=== PATIENT | female | born 1960 | race Caucasian/White ===

== ENCOUNTER 2017-08-29 05:08 | Emergency (ER) | payer MEDICAID ==
[2017-08-29 06:30] LABS: BILIRUBIN,URINE NEGATIVE (NEG); CLARITY,URINE CLOUDY; COLOR,URINE YELLOW; GLUCOSE,URINE NEGATIVE (NEG); NITRITE,URINE NEGATIVE (NEG); PH,URINE 5.5; PROTEIN,URINE NEGATIVE (NEG-TRACE); UROBILINOGEN,URINE 0.2 mg/dL (0.2 mg/dL)
[2017-08-29 06:43] LABS: BACTERIA,URINE FEW /HPF (0-FEW); RBC,URINE 0 /HPF (0-2); SQUAMOUS EPITHELIAL CELL,UR MOD /LPF; WBC,URINE >40 /HPF (0-4)
== END 2017-08-29 06:58 | disposition home or self-care (01) ==
LOC: ER 05:08
DX: N39.0 Urinary tract infection, site not specified (principal); G89.29 Other chronic pain; J44.9 Chronic obstructive pulmonary disease, unspecified; I20.9 Angina pectoris, unspecified; I11.9 Hypertensive heart disease without heart failure; I25.2 Old myocardial infarction; M06.9 Rheumatoid arthritis, unspecified; F17.210 Nicotine dependence, cigarettes, uncomplicated; Z87.440 Personal history of urinary (tract) infections; Z90.49 Acquired absence of other specified parts of digestive tract; Z98.51 Tubal ligation status; Z88.5 Allergy status to narcotic agent; Z88.2 Allergy status to sulfonamides; Z88.8 Allergy status to other drugs, medicaments and biological substances; Z88.1 Allergy status to other antibiotic agents; Z91.041 Radiographic dye allergy status
CPT/HCPCS: 81001; 87086; 87186; 99284

== ENCOUNTER 2017-11-11 14:54 | Emergency (ER) | payer MEDICAID ==
[2017-11-11] MEDS: diphenhydrAMINE HCL 25 MG CAPSULE PO (15:45)
[2017-11-11] MEDS ORDERED: methylPREDNISolone SOD SUCC PF 125 MG/2 ML VIAL. IV (15:45)
[2017-11-11] MEDS: methylPREDNISolone SOD SUCC PF 125 MG/2 ML VIAL. IM (15:58)
[2017-11-11] MEDS ORDERED: methylPREDNISolone SOD SUCC PF 125 MG/2 ML VIAL. IM (22:00)
== END 2017-11-11 15:59 | disposition home or self-care (01) ==
LOC: ER 14:54
DX: L25.9 Unspecified contact dermatitis, unspecified cause (principal); J44.9 Chronic obstructive pulmonary disease, unspecified; I10 Essential (primary) hypertension; I25.2 Old myocardial infarction; M06.9 Rheumatoid arthritis, unspecified; Z90.49 Acquired absence of other specified parts of digestive tract
CPT/HCPCS: 96372; 99283; J2930; Q0163

== ENCOUNTER 2018-01-14 10:54 | Emergency (ER) | payer OTHER, MEDICAID ==
[2018-01-14 11:42] LABS: ADD MAN DIFF? NO
[2018-01-14 11:43] LABS: BASO # 0.1 x10^3/uL (0.0-0.2); BASO % 1 % (0-3); EOS # 0.1 x10^3/uL (0.0-0.7); EOS % 1 % (0-3); HEMATOCRIT 42.8 % (36.0-47.0); HEMOGLOBIN 14.8 g/dL (12.0-15.5); LYMPH # 3.2 x10^3/uL (1.0-4.8); LYMPH % 33 % (24-48); MEAN CORPUSCULAR HEMOGLOBIN 31 pg (25-35); MEAN CORPUSCULAR HGB CONC 35 g/dL (31-37); MEAN CORPUSCULAR VOLUME 91 fL (79-100); MONO # 0.5 x10^3/uL (0.0-1.1); MONO % 6 % (0-9); NEUT # 5.9 x10^3uL (1.8-7.7); NEUT % 61 % (31-73); PLATELET COUNT 267 x10^3/uL (140-400); RED BLOOD COUNT 4.73 x10^6/uL (3.50-5.40); RED CELL DISTRIBUTION WIDTH 12.7 % (11.5-14.5); WHITE BLOOD COUNT 9.8 x10^3/uL (4.0-11.0)
[2018-01-14] MEDS: KETOROLAC 15 MG/ML VIAL. IV (11:45)
[2018-01-14 11:55] LABS: ANION GAP 6 (6-14); BLOOD UREA NITROGEN 14 mg/dL (7-20); BUN/CREATININE RATIO 16 (6-20); CALCIUM 9.1 mg/dL (8.5-10.1); CARBON DIOXIDE 30 mmol/L (21-32); CHLORIDE 105 mmol/L (98-107); CREATININE 0.9 mg/dL (0.6-1.0); GFR 64.8; GLUCOSE 91 mg/dL (70-99); POTASSIUM 4.2 mmol/L (3.5-5.1); SODIUM 141 mmol/L (136-145)
[2018-01-14 12:00] LABS: ALBUMIN 3.5 g/dL (3.4-5.0); ALBUMIN/GLOBULIN RATIO 0.9 (1.0-1.7); ALK PHOS 83 U/L (46-116); ALT (SGPT) 19 U/L (14-59); AST (SGOT) 15 U/L (15-37); TOTAL BILIRUBIN 0.5 mg/dL (0.2-1.0); TOTAL PROTEIN 7.4 g/dL (6.4-8.2)
[2018-01-14 12:03] LABS: TROPONINI < 0.017 ng/mL (0.000-0.055)
[2018-01-14 12:05] LABS: BILIRUBIN,URINE SMALL (NEG); CLARITY,URINE CLEAR; COLOR,URINE AMBER; GLUCOSE,URINE NEGATIVE (NEG); NITRITE,URINE NEGATIVE (NEG); PH,URINE 5.5; PROTEIN,URINE NEGATIVE (NEG-TRACE); UROBILINOGEN,URINE 0.2 mg/dL (0.2 mg/dL)
[2018-01-14 12:06] LABS: NT-PRO BNP 205 pg/mL (0-124)
[2018-01-14 12:10] LABS: SQUAMOUS EPITHELIAL CELL,UR MANY /LPF
[2018-01-14 12:11] LABS: BACTERIA,URINE FEW /HPF (0-FEW)
== END 2018-01-14 13:28 | disposition home or self-care (01) ==
LOC: ER 10:54
DX: I10 Essential (primary) hypertension (principal); R06.02 Shortness of breath; M54.5 Low back pain; J44.9 Chronic obstructive pulmonary disease, unspecified; I11.9 Hypertensive heart disease without heart failure; I25.2 Old myocardial infarction; Z90.49 Acquired absence of other specified parts of digestive tract; Z98.51 Tubal ligation status; Z88.1 Allergy status to other antibiotic agents; Z88.2 Allergy status to sulfonamides; Z88.5 Allergy status to narcotic agent; Z88.8 Allergy status to other drugs, medicaments and biological substances; Z91.041 Radiographic dye allergy status
CPT/HCPCS: 36415; 71045; 80053; 81001; 83880; 84484; 85025; 93005; 96374; 99285-25; J1885

== ENCOUNTER 2018-02-04 16:07 | Emergency (ER) | payer SELFPAY ==
[~2018-02-04] VITALS: Ht 167.6 cm; Wt 106.6 kg
[~2018-02-04 16:07] MED LIST: CEPH-263 PO; HYDR-2766 PO; METO-247 PO; METO100T5 PO; NABU750T PO; NITR100C62 PO; PHEN-318 PO; QUIN20TA17 PO; TRIA15CR TP
[2018-02-04 17:16] VITALS: BP 125/83
[2018-02-04] MEDS ORDERED: POTA10TA12 PO (19:24)
[2018-02-04] MEDS ORDERED: FURO20TA3 PO (19:24)
== END 2018-02-04 17:52 | disposition left against medical advice (07) ==
LOC: ER 16:07
DX: M79.89 Other specified soft tissue disorders (principal); M79.604 Pain in right leg; M79.605 Pain in left leg; Z53.21 Procedure and treatment not carried out due to patient leaving prior to being seen by health care provider

== ENCOUNTER 2018-02-04 16:17 | Emergency (ER) | payer SELFPAY ==
[~2018-02-04] VITALS: Ht 167.6 cm; Wt 106.6 kg
[2018-02-04 18:10] VITALS: BP 157/74
--- NOTE | 2018-02-04 18:14 | PHYS DOC ---
Past Medical History Past Medical History: Angina, Asthma, CAD, COPD, Diverticulitis, Heart Disease , Hypertension, Kidney Infection, [place] Additional Past Medical Histor: RHEMATOID ARTHITIS, DEGENERATIVE BONE DISEASE, URINARY INCONT Past Surgical History: Appendectomy, Cholecystectomy, Tubal ligation Additional Past Surgical Histo: RIGHT KNEE SX Smoking: Cigarettes, 1 Pack Per Day Alcohol Use: None Drug Use: None Adult General Chief Complaint Chief Complaint: LOWER EXTREMITY SWELLING HPI HPI Patient is a 58-year-old female who presents to the emergency department for evaluation. She states that over the past 4 days, she noticed that her legs began swelling bilaterally. She denies any definite pain, although she does have some soreness with ambulation. She also admits to some orthopnea but has not had any other shortness of breath. She denies any significant cough, and has not had any chest pain, dizziness, lightheadedness, fevers, or chills. She denies any leg injuries. She has not had any recent travels or immobilization. There are no alleviating, or exacerbating factors to her symptoms. She does not take any diuretic medications. Review of Systems Review of Systems Constitutional: Denies fever or chills [] Eyes: Denies change in visual acuity, redness, or eye pain [] HENT: Denies nasal congestion or sore throat [] Respiratory: Denies cough or shortness of breath [] Cardiovascular: No additional information not addressed in HPI [] GI: Denies abdominal pain, nausea, vomiting, bloody stools or diarrhea [] : Denies dysuria or hematuria [] Musculoskeletal: Denies back pain or joint pain [] Integument: Denies rash or skin lesions [] Neurologic: Denies headache, focal weakness or sensory changes [] Endocrine: Denies polyuria or polydipsia [] All other systems were reviewed and found to be within normal limits, except as documented in this note. Allergies Allergies Allergies Coded Allergies Type Severity Reaction Last Updated Verified Sulfa (Sulfonamide Antibiotics) Allergy Severe 08/29/17 Yes Tetracyclines Allergy Severe 08/29/17 Yes codeine Allergy Severe 08/29/17 Yes erythromycin base Allergy Severe 08/29/17 Yes levofloxacin Allergy Severe 08/29/17 Yes meperidine Allergy Severe 10/03/17 Yes Iodinated Contrast- Oral and IV Dye Allergy Unknown 08/29/17 Yes albuterol Allergy Unknown 02/04/18 Yes ipratropium Allergy Unknown 02/04/18 Yes Physical Exam Physical Exam PHYSICAL EXAM: CONSTITUTIONAL: Well developed, well nourished HEAD: normocephalic, atraumatic EENT: PERRL, EOMI. Conjunctivae normal color, sclerae non-icteric; moist mucous membranes. NECK: Supple, non-tender; no meningismus. LUNGS: Lungs CTA, breathing even and unlabored. Normal air movement. HEART: Regular rate and rhythm, no murmur CHEST: No deformity; non-tender ABDOMEN: The abdomen is soft, and non-tender, no masses or bruits. EXTREM: Normal ROM; no deformity, no calf tenderness. Normal pulses palpable in all extremities. There is mild bilateral 1+ pitting pedal edema. SKIN: No rash; no diaphoresis NEURO: Alert; normal speech and cognition; CN's grossly intact; strength grossly intact without focal deficit. BACK: No CVA TTP. Current Patient Data Vital Signs Vital Signs Date Time Temp Pulse Resp B/P (MAP) Pulse Ox O2 Delivery O2 Flow Rate FiO2 02/04/18 18:10 98.1 68 20 157/74 (101) 99 Room Air 98.1 Lab Values Laboratory Tests Test 02/04/18 18:20 White Blood Count 11.1 x10^3/uL (4.0-11.0) H Red Blood Count 4.42 x10^6/uL (3.50-5.40) Hemoglobin 13.6 g/dL (12.0-15.5) Hematocrit 40.6 % (36.0-47.0) Mean Corpuscular Volume 92 fL (79-100) Mean Corpuscular Hemoglobin 31 pg (25-35) Mean Corpuscular Hemoglobin Concent 34 g/dL (31-37) Red Cell Distribution Width 13.1 % (11.5-14.5) Platelet Count 249 x10^3/uL (140-400) Neutrophils (%) (Auto) 62 % (31-73) Lymphocytes (%) (Auto) 31 % (24-48) Monocytes (%) (Auto) 6 % (0-9) Eosinophils (%) (Auto) 1 % (0-3) Basophils (%) (Auto) 1 % (0-3) Neutrophils # (Auto) 6.8 x10^3uL (1.8-7.7) Lymphocytes # (Auto) 3.4 x10^3/uL (1.0-4.8) Monocytes # (Auto) 0.6 x10^3/uL (0.0-1.1) Eosinophils # (Auto) 0.2 x10^3/uL (0.0-0.7) Basophils # (Auto) 0.1 x10^3/uL (0.0-0.2) Sodium Level 139 mmol/L (136-145) Potassium Level 4.0 mmol/L (3.5-5.1) Chloride Level 104 mmol/L (98-107) Carbon Dioxide Level 30 mmol/L (21-32) Anion Gap 5 (6-14) L Blood Urea Nitrogen 12 mg/dL (7-20) Creatinine 0.9 mg/dL (0.6-1.0) Estimated GFR (Cockcroft-Gault) 64.5 BUN/Creatinine Ratio 13 (6-20) Glucose Level 85 mg/dL (70-99) Calcium Level 8.8 mg/dL (8.5-10.1) Magnesium Level 2.1 mg/dL (1.8-2.4) Total Bilirubin 0.2 mg/dL (0.2-1.0) Aspartate Amino Transferase (AST) 16 U/L (15-37) Alanine Aminotransferase (ALT) 21 U/L (14-59) Alkaline Phosphatase 93 U/L (46-116) Creatine Kinase 88 U/L (26-192) Creatine Kinase MB (Mass) 1.1 ng/mL (0.0-3.6) Creatine Kinase MB Relative Index 1.3 % (0-4) Troponin I Quantitative < 0.017 ng/mL (0.000-0.055) OJ-Vtu-D-Type Natriuretic Peptide 684 pg/mL (0-124) H Total Protein 7.1 g/dL (6.4-8.2) Albumin 3.4 g/dL (3.4-5.0) Albumin/Globulin Ratio 0.9 (1.0-1.7) L Laboratory Tests 02/04/18 18:20 Laboratory Tests 02/04/18 18:20 EKG EKG []Normal sinus rhythm at a rate of 59 beats for minute, normal axis, normal intervals, nonspecific ST/T changes. Radiology/Procedures Radiology/Procedures [ER physician preliminary chest x-ray interpretation: No acute disease.] Course & Med Decision Making Course & Med Decision Making Pertinent Labs and Imaging studies reviewed. (See chart for details) [7:20 PM:Patient remains stable. I discussed test results, the need for close outpatient cardiology follow-up, and return precautions.] Dragon Disclaimer Dragon Disclaimer This electronic medical record was generated, in whole or in part, using a voice recognition dictation system. Departure Departure Impression: Primary Impression: Pedal edema Disposition: 01 HOME, SELF-CARE Condition: STABLE Referrals: ALBERT LEROY MD Patient Instructions: Edema, Heart Failure, Peripheral Edema Scripts Potassium Chloride (POTASSIUM CHLORIDE) 10 Meq Tab.sr.24h 10 MEQ PO DAILY for 30 Days, #30 TAB.SR Prov: ARAMIS PAGAN MD 02/04/18 Furosemide (FUROSEMIDE) 20 Mg Tablet 1 TAB PO DAILY, #30 TAB 1 Refill Prov: ARAMIS PAGAN MD 02/04/18 ARAMIS PAGAN MD Feb 04, 2018 18:14
--- NOTE | 2018-02-04 18:18 | EKG ---
[facility] [address] [place] [address] Test Date: 2018-02-04 Test Time: 18:10:15 Pat Name: RADHA ALEJO Department: Room: Gender: F [employer]: : 1960 Requested By: ARAMIS PAGAN Order Number: [id number] Reading MD: Jorge Luis Maguire MD Measurements Intervals [place] Rate: 59 P: NM: QRS: 17 QRSD: 78 T: 41 QT: 394 QTc: 394 Interpretive Statements SR NON-SPECIFIC ST/T CHANGES Electronically Signed On 02-05-2018 15:28:56 CDT by Jorge Luis Maguire MD
[2018-02-04 18:34] LABS: BASO # 0.1 x10^3/uL (0.0-0.2); BASO % 1 % (0-3); EOS # 0.2 x10^3/uL (0.0-0.7); EOS % 1 % (0-3); HEMATOCRIT 40.6 % (36.0-47.0); HEMOGLOBIN 13.6 g/dL (12.0-15.5); LYMPH # 3.4 x10^3/uL (1.0-4.8); LYMPH % 31 % (24-48); MEAN CORPUSCULAR HEMOGLOBIN 31 pg (25-35); MEAN CORPUSCULAR HGB CONC 34 g/dL (31-37); MEAN CORPUSCULAR VOLUME 92 fL (79-100); MONO # 0.6 x10^3/uL (0.0-1.1); MONO % 6 % (0-9); NEUT # 6.8 x10^3uL (1.8-7.7); NEUT % 62 % (31-73); PLATELET COUNT 249 x10^3/uL (140-400); RED BLOOD COUNT 4.42 x10^6/uL (3.50-5.40); RED CELL DISTRIBUTION WIDTH 13.1 % (11.5-14.5); WHITE BLOOD COUNT 11.1 x10^3/uL (4.0-11.0)
[2018-02-04 18:46] LABS: CALCIUM 8.8 mg/dL (8.5-10.1); CREATININE 0.9 mg/dL (0.6-1.0); GFR 64.5
[2018-02-04 18:50] LABS: ALBUMIN 3.4 g/dL (3.4-5.0); ALBUMIN/GLOBULIN RATIO 0.9 (1.0-1.7); MAGNESIUM 2.1 mg/dL (1.8-2.4); TOTAL BILIRUBIN 0.2 mg/dL (0.2-1.0); TOTAL PROTEIN 7.1 g/dL (6.4-8.2)
[2018-02-04] MEDS ORDERED: POTA10TA12 PO (19:24)
[2018-02-04] MEDS ORDERED: FURO20TA3 PO (19:24)
--- NOTE | 2018-02-05 08:11 | RAD ---
EXAM: PA and lateral views of the chest DATE: 02/04/2018 6:10 PM INDICATION: PEDAL EDEMA. PT STATES TAKING OXYBUTYNIN DAILY. HX OF SMOKING, COPD COMPARISON: No Prior FINDINGS: The heart is not enlarged. Mediastinal and hilar contours are normal. No focal parenchymal airspace opacity. No pleural effusion or pneumothorax. IMPRESSION: 1. No radiographic evidence for acute cardiopulmonary process. Electronically signed by: Ruslan Rios MD (02/05/2018 8:07 AM) [facility]
== END 2018-02-04 19:36 | disposition home or self-care (01) ==
LOC: ER 16:17
DX: R60.0 Localized edema (principal); I11.9 Hypertensive heart disease without heart failure; I25.10 Atherosclerotic heart disease of native coronary artery without angina pectoris; J44.9 Chronic obstructive pulmonary disease, unspecified; F17.210 Nicotine dependence, cigarettes, uncomplicated; Z90.49 Acquired absence of other specified parts of digestive tract; Z90.89 Acquired absence of other organs; Z98.51 Tubal ligation status; Z88.8 Allergy status to other drugs, medicaments and biological substances; Z88.1 Allergy status to other antibiotic agents; Z88.2 Allergy status to sulfonamides; Z88.5 Allergy status to narcotic agent; Z91.041 Radiographic dye allergy status
CPT/HCPCS: 36415; 71046; 80053; 82553; 83735; 83880; 84484; 85025; 93005; 99285-25

== ENCOUNTER 2018-04-19 10:54 | Inpatient (IN) | payer OTHER ==
[~2018-04-19] VITALS: Ht 175.3 cm; Wt 110.7 kg
[~2018-04-19 10:54] MED LIST changes: +FURO20TA3 PO; +POTA10TA12 PO
[2018-04-19] MEDS ORDERED: ALBUTEROL SULFATE 2.5 MG/3 ML NEBU. CONT NEB ONE ×2 (11:15→13:15)
[2018-04-19] MEDS ORDERED: IPRATRPIUM/ALBUTEROL 0.5/2.5MG 3 ML NEBU. NEB ONE (11:15)
--- NOTE | 2018-04-19 11:18 | PHYS DOC ---
Past Medical History Past Medical History: Angina, Asthma, CAD, COPD, Diverticulitis, Heart Disease , Hypertension, Kidney Infection, [place] Additional Past Medical Histor: RHEMATOID ARTHITIS, DEGENERATIVE BONE DISEASE, URINARY INCONT Past Surgical History: Appendectomy, Cholecystectomy, Tubal ligation Additional Past Surgical Histo: RIGHT KNEE SX Alcohol Use: None Drug Use: None Adult General Chief Complaint Chief Complaint: COUGH HPI HPI Patient is a 58 year old female who presents with dyspnea. Patient has a known history of COPD. She has been having worsening symptoms over the last 4 days. She complains of general malaise and myalgias. She has a cough that is nonproductive. She has medications at home but states she has been too sick to use them. Denies fever. No nausea or vomiting. No abdominal pain. Review of Systems Review of Systems Constitutional: + chills Eyes: Denies change in visual acuity HENT: Denies nasal congestion Respiratory: as documented above Cardiovascular: No additional information not addressed in HPI Musculoskeletal: Denies back pain Integument: Denies rash or skin lesions Neurologic: Denies headache All other systems were reviewed and found to be within normal limits, except as documented in this note. Current Medications Current Medications Current Medications Medications (Trade) Dose Ordered Sig/Lyric Start Time Stop Time Status Last Admin Dose Admin Albuterol Sulfate (Ventolin Neb Soln) 10 mg 1X ONCE 04/19/18 11:15 04/19/18 11:19 DC 04/19/18 11:38 10 MG Albuterol/ Ipratropium (Duoneb) 3 ml 1X ONCE 04/19/18 11:15 04/19/18 11:19 DC 04/19/18 11:30 3 ML Cefpodoxime Proxetil (Vantin) 400 mg 1X ONCE 04/19/18 13:00 04/19/18 13:23 DC Furosemide (Lasix) 40 mg 1X ONCE 04/19/18 12:45 04/19/18 13:23 DC Prednisone (Prednisone) 50 mg 1X ONCE 04/19/18 12:45 04/19/18 13:23 DC Allergies Allergies Allergies Coded Allergies Type Severity Reaction Last Updated Verified Sulfa (Sulfonamide Antibiotics) Allergy Severe 08/29/17 Yes Tetracyclines Allergy Severe 08/29/17 Yes codeine Allergy Severe 08/29/17 Yes erythromycin base Allergy Severe 08/29/17 Yes levofloxacin Allergy Severe 08/29/17 Yes meperidine Allergy Severe 10/03/17 Yes Iodinated Contrast- Oral and IV Dye Allergy Unknown 08/29/17 Yes albuterol Allergy Unknown PATIENT STATES SHE IS ALLERGIC TO EXCIPIENT/OIL IN COMBIVENT 04/19/18 Yes ipratropium Allergy Unknown PATIENT STATES SHE IS ALLERGIC TO EXCIPIENT/OIL IN COMBIVENT 04/19/18 Yes Physical Exam Physical Exam Constitutional: Well developed, well nourished, pale, ill-appearing HENT: Normocephalic, atraumatic, bilateral external ears normal, oropharynx moist Eyes: PERRLA, EOMI, conjunctiva normal Neck: Normal range of motion Cardiovascular:Heart rate regular rhythm, no murmur Lungs & Thorax: Diminished air movement bilaterally with prolonged expiratory phase, wheezes heard bilaterally, moderate increased work of breathing. Abdomen: Bowel sounds normal, soft, no tenderness Skin: Warm, pale, diaphoretic Extremities: No edema Neurologic: Alert and oriented X 3 Psychologic: Affect normal Current Patient Data Vital Signs Vital Signs Date Time Temp Pulse Resp B/P (MAP) Pulse Ox O2 Delivery O2 Flow Rate FiO2 04/19/18 13:00 100 30 142/84 (103) 87 04/19/18 12:02 Room Air 04/19/18 11:00 97.6 97.6 Lab Values Laboratory Tests Test 04/19/18 11:05 White Blood Count 6.8 x10^3/uL (4.0-11.0) Red Blood Count 4.88 x10^6/uL (3.50-5.40) Hemoglobin 15.1 g/dL (12.0-15.5) Hematocrit 43.5 % (36.0-47.0) Mean Corpuscular Volume 89 fL (79-100) Mean Corpuscular Hemoglobin 31 pg (25-35) Mean Corpuscular Hemoglobin Concent 35 g/dL (31-37) Red Cell Distribution Width 12.6 % (11.5-14.5) Platelet Count 255 x10^3/uL (140-400) Neutrophils (%) (Auto) 62 % (31-73) Lymphocytes (%) (Auto) 31 % (24-48) Monocytes (%) (Auto) 6 % (0-9) Eosinophils (%) (Auto) 1 % (0-3) Basophils (%) (Auto) 1 % (0-3) Neutrophils # (Auto) 4.2 x10^3uL (1.8-7.7) Lymphocytes # (Auto) 2.1 x10^3/uL (1.0-4.8) Monocytes # (Auto) 0.4 x10^3/uL (0.0-1.1) Eosinophils # (Auto) 0.1 x10^3/uL (0.0-0.7) Basophils # (Auto) 0.0 x10^3/uL (0.0-0.2) D-Dimer (Estela) 0.50 ug/mlFEU (0.00-0.50) Sodium Level 142 mmol/L (136-145) Potassium Level 4.0 mmol/L (3.5-5.1) Chloride Level 106 mmol/L (98-107) Carbon Dioxide Level 24 mmol/L (21-32) Anion Gap 12 (6-14) Blood Urea Nitrogen 7 mg/dL (7-20) Creatinine 0.7 mg/dL (0.6-1.0) Estimated GFR (Cockcroft-Gault) 86.2 Glucose Level 94 mg/dL (70-99) Lactic Acid Level 0.8 mmol/L (0.4-2.0) Calcium Level 9.0 mg/dL (8.5-10.1) Troponin I Quantitative < 0.017 ng/mL (0.000-0.055) [id number]-Type Natriuretic Peptide 1356 pg/mL (0-124) H Laboratory Tests 04/19/18 11:05 Laboratory Tests 04/19/18 11:05 EKG EKG No STEMI Interpretation Time: 11:35: No STEMI Radiology/Procedures Radiology/Procedures CXR: Negative CT Scan Chest: Findings: Axial images of chest were obtained without contrast. Sagittal and coronal reformatted images were provided. The tracheobronchial tree is normal. Patchy infiltrates are present involving the posterior left mid thoracic level. A left paraspinal region, there is a 0.7 cm diameter nodular ill-defined infiltrate. At the same level more posteriorly, there is a larger infiltrate which may have a somewhat solid component. This measures up to 1.5 cm diameter with the dense component measuring 0.9 cm diameter. No enlarged thoracic lymph nodes. Bony structures are unremarkable for the patient's age. Right upper quadrant surgical clip is present. Thoracic aortic morphology is grossly unremarkable. Impression: Infiltrates at the posterior left mid thoracic level within the lower lobe. Interval follow-up to resolution is recommended. Course & Med Decision Making Course & Med Decision Making Pertinent Labs and Imaging studies reviewed. (See chart for details) Patient is seen and examined. Ill-appearing with some increased work of breathing. Solumedrol and breathing treatments ordered. IVF's. Currently afebrile. Patient was evaluated in the emergency department for dyspnea. She did have some wheezes initially on arrival although she had no new oxygen requirement. The patient was pale and ill appearing and diaphoretic initially. She was given an hour-long DuoNeb treatment. Basic labs were checked her white blood cell count was not elevated. Her chest x-ray did not reveal any acute findings. She was given Solu-Medrol IV. The patient has many drug allergies which makes treating COPD exacerbation somewhat challenging. Plan was initially to discharge the patient home. She was feeling subjectively better and looking better after her treatment. Upon reexamination however, the patient came dyspneic again Tyree treatment. She became diaphoretic and felt short of breath. During this time, her lung assessment again revealed recurrent wheezes. Her dyspnea and symptoms seemed out of proportion to her chest x-ray so CT scan was completed. The scan was revealing for infiltrates as documented above. The patient is being admitted to the hospitalist service. Note: CT scan of the chest did return after the patient had already been admitted to the hospitalist service. I did review the electronic medical record and it appears that antibiotics were placed per the hospitalist to treat this patient's likely pneumonia. Dragon Disclaimer Dragon Disclaimer This electronic medical record was generated, in whole or in part, using a voice recognition dictation system. Departure Departure Referrals: UNKNOWN PCP NAME (PCP) COURTNEY FLOYD DO Apr 19, 2018 11:18
[2018-04-19 11:48] LABS: BASO % 1 % (0-3); EOS # 0.1 x10^3/uL (0.0-0.7); EOS % 1 % (0-3); HEMATOCRIT 43.5 % (36.0-47.0); HEMOGLOBIN 15.1 g/dL (12.0-15.5); LYMPH # 2.1 x10^3/uL (1.0-4.8); LYMPH % 31 % (24-48); MEAN CORPUSCULAR HEMOGLOBIN 31 pg (25-35); MEAN CORPUSCULAR HGB CONC 35 g/dL (31-37); MEAN CORPUSCULAR VOLUME 89 fL (79-100); MONO # 0.4 x10^3/uL (0.0-1.1); MONO % 6 % (0-9); NEUT # 4.2 x10^3uL (1.8-7.7); NEUT % 62 % (31-73); PLATELET COUNT 255 x10^3/uL (140-400); RED BLOOD COUNT 4.88 x10^6/uL (3.50-5.40); RED CELL DISTRIBUTION WIDTH 12.6 % (11.5-14.5); WHITE BLOOD COUNT 6.8 x10^3/uL (4.0-11.0)
[2018-04-19 11:59] LABS: CREATININE 0.7 mg/dL (0.6-1.0); GFR 86.2
--- NOTE | 2018-04-19 12:31 | RAD ---
Examination: PORTABLE CHEST 1V History: COPD, dyspnea, fever, RUNNING NOSE, COUGH GOING ON 3 DAYS, HX OF HEART ATTACK, HX HYPERTENTION, HX HYPERLIPIDEMIA Comparison/Correlation: 02/04/2018 two-view chest x-ray exam Findings: Portable upright frontal view chest was obtained. Heart size and pulmonary vasculature are normal. No new infiltrate or effusion. Bony structures are unremarkable. No pneumothorax. Impression: No active disease. Electronically signed by: Aaron Burnette MD (04/19/2018 12:29 PM) [facility]
[2018-04-19] MEDS ORDERED: predniSONE 10 MG TABLET PO ONE (12:45)
[2018-04-19] MEDS ORDERED: FUROSEMIDE 40 MG TABLET. PO ONE (12:45)
[2018-04-19] MEDS ORDERED: CEFPODOXIME PROXETIL 100 MG TABLET. PO ONE (13:00)
[2018-04-19] MEDS ORDERED: ACETAMINOPHEN 325 MG TABLET. PO PRN (13:15)
[2018-04-19] MEDS ORDERED: ONDANSETRON PF 4 MG/2 ML VIAL. IV PRN ×2 (13:15→14:15)
[2018-04-19] MEDS ORDERED: methylPREDNISolone SOD SUCC PF 125 MG/2 ML VIAL. IV ONE (13:45)
--- NOTE | 2018-04-19 14:12 | RAD ---
Examination: CT CHEST WO CONTRAST History: dyspnea out of proportion to CXR Comparison/Correlation: 04/19/2018 portable chest x-ray exam Findings: Axial images of chest were obtained without contrast. Sagittal and coronal reformatted images were provided. The tracheobronchial tree is normal. Patchy infiltrates are present involving the posterior left mid thoracic level. A left paraspinal region, there is a 0.7 cm diameter nodular ill-defined infiltrate. At the same level more posteriorly, there is a larger infiltrate which may have a somewhat solid component. This measures up to 1.5 cm diameter with the dense component measuring 0.9 cm diameter. No enlarged thoracic lymph nodes. Bony structures are unremarkable for the patient's age. Right upper quadrant surgical clip is present. Thoracic aortic morphology is grossly unremarkable. Impression: Infiltrates at the posterior left mid thoracic level within the lower lobe. Interval follow-up to resolution is recommended. Electronically signed by: Aaron Burnette MD (04/19/2018 2:09 PM) [facility]
[2018-04-19] MEDS ORDERED: diphenhydrAMINE HCL 25 MG CAPSULE PO PRN (14:15)
[2018-04-19] MEDS ORDERED: guaiFENesin DM 200MG/20MG 10 ML SYRUP PO PRN (14:15)
[2018-04-19] MEDS ORDERED: NICOTINE 21MG PATCH. TD PRN (14:45)
[2018-04-19] MEDS ORDERED: PIP/TAZO PER PHARMACY MC PRN (14:45)
[2018-04-19] MEDS ORDERED: NICOTINE POLACRILEX 2MG GUM PACKAGE of 12. BC PRN ×2 (14:45→15:15)
--- NOTE | 2018-04-19 14:47 | PDOC1 ---
History and Physical Date of Admission Date of Admission DATE: 04/19/18 TIME: 14:40 Identification/Chief Complaint Chief Complaint S OA with sweats Source Source: Caregiver, Chart review, Patient History of Present Illness History of Present Illness 58-year-old female who smokes about a pack a day, BMI 39, comes in because of SOA. No fevers, no recent change in phlegm. She can hardly cough out any phlegm. Very SOA and wheezy on admission or at ER arrival. She was about to sent home but then sudden onset of dyspnea and sweating. Hence admitted with pulmonary consulted. Chest x-ray shows no acute infiltrate but CTA ordered and still pending. CArds also consulted bec of the diaphoresis and mildly elevated BNP 1300. NO hx CHF, she denies any CP currently,, She is breathing much better , symmetrical chest expansion, very minimal wheezing I could appreciate. She is considering to stop smoking. AddendUm: CT Impression: Infiltrates at the posterior left mid thoracic level within the lower lobe. Interval follow-up to resolution is recommended. Past Medical History Cardiovascular: HTN Pulmonary: Asthma, Bronchitis, COPD Past Surgical History Past Surgical History: No pertinent history Family History Family History: Hypertension Social History Smoke: 1 pack per day ALCOHOL: occassional Drugs: None Current Medications Current Medications Current Medications Albuterol/ Ipratropium (Duoneb) 3 ml 1X ONCE NEB Last administered on at 11:30; Start 04/19/18 at 11:15; Stop 04/19/18 at 11:19; Status DC Albuterol Sulfate (Ventolin Neb Soln) 10 mg 1X ONCE CONT NEB Last administered on 04/19/18at 11:38; Start 04/19/18 at 11:15; Stop 04/19/18 at 11 :19; Status DC Furosemide (Lasix) 40 mg 1X ONCE PO ; Start 04/19/18 at 12:45; Stop 04/19/18 at 13:23; Status DC Prednisone (Prednisone) 50 mg 1X ONCE PO ; Start 04/19/18 at 12:45; Stop at 13:23; Status DC Cefpodoxime Proxetil (Vantin) 400 mg 1X ONCE PO ; Start 04/19/18 at 13:00; Stop 04/19/18 at 13:23; Status DC Albuterol Sulfate (Ventolin Neb Soln) 10 mg 1X ONCE CONT NEB ; Start 04/19/18 at 13:15; Stop 04/19/18 at 13:22; Status DC Ondansetron HCl (Zofran) 4 mg PRN Q8HRS PRN IV NAUSEA/VOMITING; Start at 13:15; Stop 04/19/18 at 14:06; Status DC Fentanyl Citrate (Fentanyl 2ml Vial) 50 mcg PRN Q2HR PRN IV PAIN; Start at 13:15; Stop 04/20/18 at 13:14 Acetaminophen (Tylenol) 650 mg PRN Q4HRS PRN PO FEVER; Start 04/19/18 at 13:15 ; Stop 04/20/18 at 13:14 Albuterol/ Ipratropium (Duoneb) 3 ml RTQID NEB ; Start 04/19/18 at 16:00; Stop 04/20/18 at 15:59 Methylprednisolone Sodium Succinate (SOLU-Medrol 125MG VIAL) 125 mg 1X ONCE IV Last administered on 04/19/18at 13:41; Start 04/19/18 at 13:45; Stop at 13:46; Status DC Ondansetron HCl (Zofran) 4 mg PRN Q6HRS PRN IV NAUSEA/VOMITING; Start at 14:15 Benzonatate (Tessalon Perle) 100 mg [id number] PO ; Start 04/19/18 at 14:30 Diphenhydramine HCl (Benadryl) 25 mg PRN QHS PRN PO INSOMNIA; Start 04/19/18 at 14:15 Guaifenesin (Robitussin Dm) 10 ml PRN Q6HRS PRN PO COUGH; Start 04/19/18 at 14 :15 Furosemide (Lasix) 20 mg DAILY PO ; Start 04/19/18 at 15:00 Metoprolol Succinate (Toprol Xl) 100 mg BID PO ; Start 04/19/18 at 21:00 Potassium Chloride (Klor-Con) 10 meq DAILY PO ; Start 04/19/18 at 15:00 Acetaminophen/ Hydrocodone Bitart (Lortab 10/325) 1 tab BID PO ; Start at 21:00 Meloxicam (Mobic) 15 mg DAILY PO ; Start 04/20/18 at 09:00 Phenazopyridine HCl (Pyridium) 200 mg TID PO ; Start 04/19/18 at 14:30 Lisinopril (Prinivil) 20 mg DAILY PO ; Start 04/19/18 at 15:00 Triamcinolone Acetonide (Kenalog) 1 william BID TP ; Start 04/19/18 at 21:00 Active Scripts Active Potassium Chloride 10 Meq Tab.sr.24h 10 Meq PO DAILY 30 Days Furosemide 20 Mg Tablet 1 Tab PO DAILY Quinapril Hcl 20 Mg Tablet 20 Mg PO DAILY 30 Days Toprol Xl (Metoprolol Succinate) 100 Mg Tab.er.24h 1 Tab PO DAILY Triamcinolone Acetonide 0.5% Cream (Triamcinolone Acetonide) 15 Gm Cream..g. 1 William TP BID Keflex (Cephalexin) 250 Mg Capsule 1 Cap PO TID Pyridium (Phenazopyridine Hcl) 200 Mg Tablet 200 Mg PO TID 3 Days Macrobid 100 Mg Capsule (Nitrofurantoin Monohyd/M-Cryst) 100 Mg Capsule 1 Cap PO BID Reported Hydrocodone-Apap 10-325 (Hydrocodone Bit/Acetaminophen) 1 Each Tablet 1 Tab PO BID Metoprolol Succinate ( Xl ) (Metoprolol Succinate) 100 Mg Tab.er.24h 1 Tab PO BID Nabumetone 750 Mg Tablet 1,500 Mg PO DAILY Quinapril Hcl 20 Mg Tablet 1 Tab PO DAILY Allergies Allergies: Coded Allergies: Sulfa (Sulfonamide Antibiotics) (Verified Allergy, Severe, 08/29/17) Tetracyclines (Verified Allergy, Severe, 08/29/17) codeine (Verified Allergy, Severe, 08/29/17) erythromycin base (Verified Allergy, Severe, 08/29/17) levofloxacin (Verified Allergy, Severe, 08/29/17) meperidine (Verified Allergy, Severe, 10/03/17) Patient has taken Fentanyl OK. Iodinated Contrast- Oral and IV Dye (Verified Allergy, Unknown, 08/29/17) albuterol (Verified Allergy, Unknown, PATIENT STATES SHE IS ALLERGIC TO EXCIPIENT/OIL IN COMBIVENT, 04/19/18) Per Dr. English 04/19 she is not allergic to albuterol or ipratroium ipratropium (Verified Allergy, Unknown, PATIENT STATES SHE IS ALLERGIC TO EXCIPIENT/OIL IN COMBIVENT, 04/19/18) Per Dr. English 04/19 she is not allergic to albuterol or ipratroium ROS Review of System as per HPI, the rest of ROS 14 point negative Physical Exam General: Alert, Oriented X3, Cooperative, No acute distress HEENT: Atraumatic, PERRLA Lungs: Clear to auscultation, Normal air movement, Other (minimal wheezing bases) Heart: S1S2, RRR, no thrills, no gallops, no murmurs Cardiovascular: S1, S2 Breasts: Normal, Rt breast nml w/o mass, Lt breast nml w/o mass, Nipples normal Abdomen: Normal bowel sounds, Soft, No tenderness, No hepatosplenomegaly, No masses Rectal Exam: not examined PELVIC: Nml ext genitalia Extremities: No clubbing, No cyanosis, No edema, Normal pulses, No tenderness/ swelling Skin: No rashes, No breakdown, No significant lesion Neuro: Normal gait, Normal speech, Strength at 5/5 X4 ext, Normal tone, Sensation intact, Cranial nerves 3-12 NL, Reflexes 2+ Psych/Mental Status: Mental status NL, Mood NL Vitals Vitals Vital Signs Date Time Temp Pulse Resp B/P (MAP) Pulse Ox O2 Delivery O2 Flow Rate FiO2 04/19/18 13:35 98.2 90 24 142/81 (101) 97 Nasal Cannula 2.0 98.2 Labs Labs Laboratory Tests Test 04/19/18 11:05 White Blood Count 6.8 x10^3/uL (4.0-11.0) Red Blood Count 4.88 x10^6/uL (3.50-5.40) Hemoglobin 15.1 g/dL (12.0-15.5) Hematocrit 43.5 % (36.0-47.0) Mean Corpuscular Volume 89 fL (79-100) Mean Corpuscular Hemoglobin 31 pg (25-35) Mean Corpuscular Hemoglobin Concent 35 g/dL (31-37) Red Cell Distribution Width 12.6 % (11.5-14.5) Platelet Count 255 x10^3/uL (140-400) Neutrophils (%) (Auto) 62 % (31-73) Lymphocytes (%) (Auto) 31 % (24-48) Monocytes (%) (Auto) 6 % (0-9) Eosinophils (%) (Auto) 1 % (0-3) Basophils (%) (Auto) 1 % (0-3) Neutrophils # (Auto) 4.2 x10^3uL (1.8-7.7) Lymphocytes # (Auto) 2.1 x10^3/uL (1.0-4.8) Monocytes # (Auto) 0.4 x10^3/uL (0.0-1.1) Eosinophils # (Auto) 0.1 x10^3/uL (0.0-0.7) Basophils # (Auto) 0.0 x10^3/uL (0.0-0.2) D-Dimer (Estela) 0.50 ug/mlFEU (0.00-0.50) Sodium Level 142 mmol/L (136-145) Potassium Level 4.0 mmol/L (3.5-5.1) Chloride Level 106 mmol/L (98-107) Carbon Dioxide Level 24 mmol/L (21-32) Anion Gap 12 (6-14) Blood Urea Nitrogen 7 mg/dL (7-20) Creatinine 0.7 mg/dL (0.6-1.0) Estimated GFR (Cockcroft-Gault) 86.2 Glucose Level 94 mg/dL (70-99) Lactic Acid Level 0.8 mmol/L (0.4-2.0) Calcium Level 9.0 mg/dL (8.5-10.1) Troponin I Quantitative < 0.017 ng/mL (0.000-0.055) BL-Uhd-R-Type Natriuretic Peptide 1356 pg/mL (0-124) Laboratory Tests Test 04/19/18 11:05 White Blood Count 6.8 x10^3/uL (4.0-11.0) Red Blood Count 4.88 x10^6/uL (3.50-5.40) Hemoglobin 15.1 g/dL (12.0-15.5) Hematocrit 43.5 % (36.0-47.0) Mean Corpuscular Volume 89 fL (79-100) Mean Corpuscular Hemoglobin 31 pg (25-35) Mean Corpuscular Hemoglobin Concent 35 g/dL (31-37) Red Cell Distribution Width 12.6 % (11.5-14.5) Platelet Count 255 x10^3/uL (140-400) Neutrophils (%) (Auto) 62 % (31-73) Lymphocytes (%) (Auto) 31 % (24-48) Monocytes (%) (Auto) 6 % (0-9) Eosinophils (%) (Auto) 1 % (0-3) Basophils (%) (Auto) 1 % (0-3) Neutrophils # (Auto) 4.2 x10^3uL (1.8-7.7) Lymphocytes # (Auto) 2.1 x10^3/uL (1.0-4.8) Monocytes # (Auto) 0.4 x10^3/uL (0.0-1.1) Eosinophils # (Auto) 0.1 x10^3/uL (0.0-0.7) Basophils # (Auto) 0.0 x10^3/uL (0.0-0.2) D-Dimer (Estela) 0.50 ug/mlFEU (0.00-0.50) Sodium Level 142 mmol/L (136-145) Potassium Level 4.0 mmol/L (3.5-5.1) Chloride Level 106 mmol/L (98-107) Carbon Dioxide Level 24 mmol/L (21-32) Anion Gap 12 (6-14) Blood Urea Nitrogen 7 mg/dL (7-20) Creatinine 0.7 mg/dL (0.6-1.0) Estimated GFR (Cockcroft-Gault) 86.2 Glucose Level 94 mg/dL (70-99) Lactic Acid Level 0.8 mmol/L (0.4-2.0) Calcium Level 9.0 mg/dL (8.5-10.1) Troponin I Quantitative < 0.017 ng/mL (0.000-0.055) FZ-Sld-B-Type Natriuretic Peptide 1356 pg/mL (0-124) VTE Prophylaxis Ordered VTE Prophylaxis Devices: Yes VTE Pharmacological Prophylaxi: Yes Assessment/Plan Assessment/Plan CAP - CT shows infiltrates Smoker pack a day COPD flare Obesity HTN Diaphoresis POA - likely sec to lung issue SIRS POA, no sepsis or organ dysfcn Allergies to levaquin and emycin PLAN: CAP coverage PUlmo consult Allergies to levaquin and emycin HEnce zosyn per pharmacy Cough med, neb Pred 50 PO I have reconciled home emds Kalpana patch Counselled 1:1 against smoking She is eager to go home soon if she can seen at rm 578 dw RN at bedside SCOTT CHAPPELL MD Apr 19, 2018 14:47
--- NOTE | 2018-04-19 14:58 | EKG ---
[facility] [address] [place] [address] Test Date: 2018-04-19 Test Time: 11:30:03 Pat Name: RADHA ALEJO Department: Room: 578 1 Gender: F [employer]: : [id number] Requested By: COURTNEY FLOYD Order Number: [id number] Reading MD: Jorge Luis Maguire MD Measurements Intervals [place] Rate: 65 P: 142 LA: 150 QRS: 170 QRSD: 78 T: 129 QT: 414 QTc: 435 Interpretive Statements SINUS RHYTHM LIMB LEAD REVERSAL Electronically Signed On 04-20-2018 11:46:05 CDT by Jorge Luis Maguire MD
[2018-04-19 15:00] VITALS: BP 134/90
[2018-04-19] MEDS: PIPERACILLIN/TAZOBACTAM 3.375 GM in IV NORMAL SALINE 50ML 50 ML IV SCH ×2 (15:00→19:58)
[2018-04-19] MEDS: fentaNYL PF VIAL 100 MCG/2 ML VIAL IV PRN ×2 (15:04→19:57)
[2018-04-19] MEDS: IPRATRPIUM/ALBUTEROL 0.5/2.5MG 3 ML NEBU. NEB SCH ×2 (15:10→19:28)
[2018-04-19] MEDS ORDERED: ALPRAZolam 0.5 MG TABLET PO ONE (15:15)
[2018-04-19] MEDS: BENZONATATE 100 MG CAPSULE. PO SCH ×2 (18:16→21:18)
[2018-04-19] MEDS: LISINOPRIL 20 MG TABLET PO SCH (18:16)
[2018-04-19] MEDS: POTASSIUM CHLORIDE 10 MEQ TABLET.ER. PO SCH (18:17)
[2018-04-19] MEDS: PHENAZOPYRIDINE 200 MG TABLET. PO SCH ×2 (18:17→21:18)
[2018-04-19] MEDS: FUROSEMIDE 20 MG TABLET PO SCH (18:17)
[2018-04-19] MEDS: predniSONE 20 MG TABLET PO SCH (18:17)
[2018-04-19 19:00] VITALS: BP 139/68
[2018-04-19] MEDS ORDERED: TRIAMCINOLONE ACETONIDE 0.1% TOPICAL CREAM 15GM TUBE. TP SCH (21:00)
[2018-04-19] MEDS: METOPROLOL SUCC 24HR ER 100 MG TAB.ER.24H. PO SCH (21:18)
[2018-04-19] MEDS: LACTOBACILLUS RHAMNOSUS GG 1 CAPSULE. PO SCH (21:18)
[2018-04-19] MEDS: HYDROcodone/APAP 10/325 1 TAB TABLET PO SCH (21:22)
[2018-04-19 23:00] VITALS: BP 110/56
[2018-04-20] MEDS: PIPERACILLIN/TAZOBACTAM 3.375 GM in IV NORMAL SALINE 50ML 50 ML IV SCH ×2 (00:12→05:48)
[2018-04-20] MEDS ORDERED: ALPR1TAB6 PO (00:27)
[2018-04-20] MEDS ORDERED: ASPI-630 PO (00:27)
[2018-04-20] MEDS ORDERED: TRAM50TA PO (00:27)
[2018-04-20] MEDS ORDERED: GABA600T2 PO (00:27)
[2018-04-20] MEDS: ALPRAZolam 0.5 MG TABLET PO PRN ×2 (00:35→09:21)
[2018-04-20 01:13] LABS: INFLUENZA A PATIENT NEGATIVE (NEGATIVE); INFLUENZA B PATIENT NEGATIVE (NEGATIVE)
[2018-04-20 03:00] VITALS: BP 138/72
[2018-04-20 04:34] LABS: BASO % 0 % (0-3); EOS % 0 % (0-3); HEMATOCRIT 41.2 % (36.0-47.0); HEMOGLOBIN 14.4 g/dL (12.0-15.5); LYMPH # 1.1 x10^3/uL (1.0-4.8); LYMPH % 13 % (24-48); MEAN CORPUSCULAR HEMOGLOBIN 31 pg (25-35); MEAN CORPUSCULAR HGB CONC 35 g/dL (31-37); MEAN CORPUSCULAR VOLUME 90 fL (79-100); MONO # 0.2 x10^3/uL (0.0-1.1); MONO % 3 % (0-9); NEUT # 7.4 x10^3uL (1.8-7.7); NEUT % 84 % (31-73); PLATELET COUNT 270 x10^3/uL (140-400); RED BLOOD COUNT 4.59 x10^6/uL (3.50-5.40); RED CELL DISTRIBUTION WIDTH 12.9 % (11.5-14.5); WHITE BLOOD COUNT 8.7 x10^3/uL (4.0-11.0)
[2018-04-20 05:04] LABS: CALCIUM 8.8 mg/dL (8.5-10.1); CREATININE 0.8 mg/dL (0.6-1.0); GFR 73.9; POTASSIUM 3.9 mmol/L (3.5-5.1)
[2018-04-20] MEDS ORDERED: traMADol 50 MG TABLET PO PRN (06:00)
[2018-04-20 07:00] VITALS: BP 156/82
[2018-04-20] MEDS: IPRATRPIUM/ALBUTEROL 0.5/2.5MG 3 ML NEBU. NEB SCH (08:15)
[2018-04-20] MEDS ORDERED: MELOXICAM 7.5 MG TABLET PO SCH (09:00)
[2018-04-20] MEDS ORDERED: GABAPENTIN 300 MG CAPSULE. PO SCH (09:00)
[2018-04-20] MEDS ORDERED: ASPIRIN CHEWABLE 81 MG TABLET. PO SCH (09:00)
[2018-04-20] MEDS: HYDROcodone/APAP 10/325 1 TAB TABLET PO SCH (09:18)
[2018-04-20] MEDS: FUROSEMIDE 20 MG TABLET PO SCH (09:18)
[2018-04-20] MEDS: METOPROLOL SUCC 24HR ER 100 MG TAB.ER.24H. PO SCH (09:19)
[2018-04-20] MEDS: predniSONE 20 MG TABLET PO SCH (09:19)
[2018-04-20] MEDS: LACTOBACILLUS RHAMNOSUS GG 1 CAPSULE. PO SCH (09:19)
[2018-04-20] MEDS: POTASSIUM CHLORIDE 10 MEQ TABLET.ER. PO SCH (09:19)
[2018-04-20] MEDS: BENZONATATE 100 MG CAPSULE. PO SCH (09:20)
[2018-04-20] MEDS: LISINOPRIL 20 MG TABLET PO SCH (09:21)
[2018-04-20] MEDS ORDERED: VANCOMYCIN 1 GM in IV NORMAL SALINE 250ML 250 ML IV SCH (10:15)
[2018-04-20] MEDS ORDERED: VANCOMYCIN PER PHARMACY MC PRN (10:15)
--- NOTE | 2018-04-20 10:28 | PDOC2 ---
CARDIAC CONSULT PAST MEDICAL HISTORY Pulmonary: Pneumonia CURRENT MEDICATIONS CURRENT MEDICATIONS Current Medications Medications (Trade) Dose Ordered Sig/Lyric Route PRN Reason Start Time Stop Time Status Last Admin Dose Admin Albuterol/ Ipratropium (Duoneb) 3 ml 1X ONCE NEB 04/19/18 11:15 04/19/18 11:19 DC 04/19/18 11:30 Albuterol Sulfate (Ventolin Neb Soln) 10 mg 1X ONCE CONT NEB 04/19/18 11:15 04/19/18 11:19 DC 04/19/18 11:38 Fentanyl Citrate (Fentanyl 2ml Vial) 50 mcg PRN Q2HR PRN IV PAIN 04/19/18 13:15 04/20/18 13:14 04/19/18 19:57 Acetaminophen (Tylenol) 650 mg PRN Q4HRS PRN PO FEVER 04/19/18 13:15 04/20/18 13:14 04/20/18 03:51 Albuterol/ Ipratropium (Duoneb) 3 ml RTQID NEB 04/19/18 16:00 04/20/18 15:59 04/20/18 08:15 Methylprednisolone Sodium Succinate (SOLU-Medrol 125MG VIAL) 125 mg 1X ONCE IV 04/19/18 13:45 04/19/18 13:46 DC 04/19/18 13:41 Benzonatate (Tessalon Perle) 100 mg [id number] PO 04/19/18 14:30 04/20/18 09:20 Furosemide (Lasix) 20 mg DAILY PO 04/19/18 15:00 04/20/18 09:18 Metoprolol Succinate (Toprol Xl) 100 mg BID PO 04/19/18 21:00 04/20/18 09:19 Potassium Chloride (Klor-Con) 10 meq DAILY PO 04/19/18 15:00 04/20/18 09:19 Acetaminophen/ Hydrocodone Bitart (Lortab 10/325) 1 tab BID PO 04/19/18 21:00 04/20/18 09:18 Meloxicam (Mobic) 15 mg DAILY PO 04/20/18 09:00 04/20/18 09:20 Phenazopyridine HCl (Pyridium) 200 mg TID PO 04/19/18 14:30 04/20/18 00:31 DC 04/19/18 21:18 Lisinopril (Prinivil) 20 mg DAILY PO 04/19/18 15:00 04/20/18 09:21 Prednisone (Prednisone) 50 mg DAILY PO 04/19/18 15:30 04/20/18 09:19 Piperacillin Sod/ Tazobactam Sod 3.375 gm/Sodium Chloride 50 ml @ 100 mls/hr Q6HRS IV 04/19/18 15:00 04/20/18 05:48 Alprazolam (Xanax) 0.5 mg PRN Q8HRS PRN PO ANXIETY / AGITATION 04/19/18 22:00 04/20/18 09:21 Alprazolam (Xanax) 0.5 mg 1X ONCE PO 04/19/18 15:15 04/19/18 15:16 DC 04/19/18 15:16 Lactobacillus Rhamnosus (Culturelle) 1 cap BID PO 04/19/18 21:00 04/20/18 09:19 Aspirin (Children'S Aspirin) 81 mg DAILY PO 04/20/18 09:00 04/20/18 09:20 Gabapentin (Neurontin) 600 mg BID PO 04/20/18 09:00 04/20/18 09:18 Tramadol HCl (Ultram) 50 mg PRN Q6HRS PRN PO MODERATE PAIN 04/20/18 06:00 04/20/18 05:55 ALLERGIES ALLERGIES: Coded Allergies: Sulfa (Sulfonamide Antibiotics) (Verified Allergy, Severe, 08/29/17) Tetracyclines (Verified Allergy, Severe, 08/29/17) codeine (Verified Allergy, Severe, 08/29/17) erythromycin base (Verified Allergy, Severe, 08/29/17) levofloxacin (Verified Allergy, Severe, 08/29/17) meperidine (Verified Allergy, Severe, 10/03/17) Patient has taken Fentanyl OK. Iodinated Contrast- Oral and IV Dye (Verified Allergy, Unknown, 08/29/17) albuterol (Verified Allergy, Unknown, PATIENT STATES SHE IS ALLERGIC TO EXCIPIENT/OIL IN COMBIVENT, 04/19/18) Per Dr. English 04/19 she is not allergic to albuterol or ipratroium ipratropium (Verified Allergy, Unknown, PATIENT STATES SHE IS ALLERGIC TO EXCIPIENT/OIL IN COMBIVENT, 04/19/18) Per Dr. English 04/19 she is not allergic to albuterol or ipratroium VITALS VITALS Vital Signs Date Time Temp Pulse Resp B/P (MAP) Pulse Ox O2 Delivery O2 Flow Rate FiO2 04/20/18 09:21 64 156/82 04/20/18 08:16 97 Room Air 04/20/18 07:00 97.9 20 97.9 04/20/18 03:00 2.0 LABS Lab: Laboratory Tests Test 04/19/18 11:05 04/19/18 16:20 04/19/18 18:52 04/19/18 23:45 White Blood Count 6.8 x10^3/uL (4.0-11.0) Red Blood Count 4.88 x10^6/uL (3.50-5.40) Hemoglobin 15.1 g/dL (12.0-15.5) Hematocrit 43.5 % (36.0-47.0) Mean Corpuscular Volume 89 fL (79-100) Mean Corpuscular Hemoglobin 31 pg (25-35) Mean Corpuscular Hemoglobin Concent 35 g/dL (31-37) Red Cell Distribution Width 12.6 % (11.5-14.5) Platelet Count 255 x10^3/uL (140-400) Neutrophils (%) (Auto) 62 % (31-73) Lymphocytes (%) (Auto) 31 % (24-48) Monocytes (%) (Auto) 6 % (0-9) Eosinophils (%) (Auto) 1 % (0-3) Basophils (%) (Auto) 1 % (0-3) Neutrophils # (Auto) 4.2 x10^3uL (1.8-7.7) Lymphocytes # (Auto) 2.1 x10^3/uL (1.0-4.8) Monocytes # (Auto) 0.4 x10^3/uL (0.0-1.1) Eosinophils # (Auto) 0.1 x10^3/uL (0.0-0.7) Basophils # (Auto) 0.0 x10^3/uL (0.0-0.2) D-Dimer (Estela) 0.50 ug/mlFEU (0.00-0.50) Sodium Level 142 mmol/L (136-145) Potassium Level 4.0 mmol/L (3.5-5.1) Chloride Level 106 mmol/L (98-107) Carbon Dioxide Level 24 mmol/L (21-32) Anion Gap 12 (6-14) Blood Urea Nitrogen 7 mg/dL (7-20) Creatinine 0.7 mg/dL (0.6-1.0) Estimated GFR (Cockcroft-Gault) 86.2 Glucose Level 94 mg/dL (70-99) Lactic Acid Level 0.8 mmol/L (0.4-2.0) Calcium Level 9.0 mg/dL (8.5-10.1) Troponin I Quantitative < 0.017 ng/mL (0.000-0.055) < 0.017 ng/mL (0.000-0.055) < 0.017 ng/mL (0.000-0.055) RY-Byt-W-Type Natriuretic Peptide 1356 pg/mL (0-124) Influenza Type A Antigen Negative (NEGATIVE) Influenza Type B Antigen Negative (NEGATIVE) Test 04/20/18 04:05 White Blood Count 8.7 x10^3/uL (4.0-11.0) Red Blood Count 4.59 x10^6/uL (3.50-5.40) Hemoglobin 14.4 g/dL (12.0-15.5) Hematocrit 41.2 % (36.0-47.0) Mean Corpuscular Volume 90 fL (79-100) Mean Corpuscular Hemoglobin 31 pg (25-35) Mean Corpuscular Hemoglobin Concent 35 g/dL (31-37) Red Cell Distribution Width 12.9 % (11.5-14.5) Platelet Count 270 x10^3/uL (140-400) Neutrophils (%) (Auto) 84 % (31-73) Lymphocytes (%) (Auto) 13 % (24-48) Monocytes (%) (Auto) 3 % (0-9) Eosinophils (%) (Auto) 0 % (0-3) Basophils (%) (Auto) 0 % (0-3) Neutrophils # (Auto) 7.4 x10^3uL (1.8-7.7) Lymphocytes # (Auto) 1.1 x10^3/uL (1.0-4.8) Monocytes # (Auto) 0.2 x10^3/uL (0.0-1.1) Eosinophils # (Auto) 0.0 x10^3/uL (0.0-0.7) Basophils # (Auto) 0.0 x10^3/uL (0.0-0.2) Sodium Level 141 mmol/L (136-145) Potassium Level 3.9 mmol/L (3.5-5.1) Chloride Level 105 mmol/L (98-107) Carbon Dioxide Level 25 mmol/L (21-32) Anion Gap 11 (6-14) Blood Urea Nitrogen 14 mg/dL (7-20) Creatinine 0.8 mg/dL (0.6-1.0) Estimated GFR (Cockcroft-Gault) 73.9 Glucose Level 128 mg/dL (70-99) Calcium Level 8.8 mg/dL (8.5-10.1) DREW MILLER APRN Apr 20, 2018 10:28
[2018-04-20] MEDS ORDERED: AMOX1TAB61 PO (10:48)
[2018-04-20 10:50] LABS: CHOLESTEROL/HDL RATIO 4.9
[2018-04-20 11:00] VITALS: BP 162/83
[2018-04-20] MEDS ORDERED: VANCOMYCIN 2 GM in IV NORMAL SALINE 500ML BAG 500 ML IV ONE (11:00)
--- NOTE | 2018-04-20 20:47 | CONS ---
DATE OF CONSULTATION: 04/20/2018 REFERRING PHYSICIAN: Dr. Salinas. REASON FOR CONSULTATION: Bacteremia. HISTORY OF PRESENT ILLNESS: A 58-year-old female who presented to the ER yesterday with complaints of shortness of breath. The patient has a history of known COPD. She said that her symptoms worsened over the last 4 days with generalized malaise and myalgia. Cough is nonproductive. The patient denies any fevers or chills. Did have some diarrhea. Does have some intermittent postmenopausal vaginal bleeding. Denies having any further evaluation for the same. Denies any dysuria. Denies any fevers or chills. Denies any new joint pain. Does have arthritis and gets pain off and on from that. She received prednisone and cefpodoxime in the ER. She was started on Zosyn this morning. Her blood cultures were positive for gram-positive cocci in clusters, so Infectious Disease consult has been requested for antibiotic management. Today, the patient denies any fevers, chills. Does have some diarrhea. No abdominal pain. Tolerating p.o. intake well. Otherwise, as above. REVIEW OF SYSTEMS: Negative except for above. CURRENT MEDICATION: IV Zosyn. Other medications reviewed in medication list. ALLERGIES: SULFA, TETRACYCLINE, CODEINE, ERYTHROMYCIN BASE, LEVOFLOXACIN, MEPERIDINE, IODINATED CONTRAST, ALBUTEROL, IPRATROPIUM. SOCIAL HISTORY: Smokes 1 pack per day. ETOH occasional. No illicit drug use. PHYSICAL EXAMINATION: VITAL SIGNS: Temperature 97.9, pulse 64, respiratory rate 20, blood pressure 156/82, oxygen saturation 97% on room air. GENERAL: Alert, oriented x 3 female, lying in bed comfortably, in no acute distress. HEENT: Normocephalic, atraumatic, anicteric. No thrush. No conjunctival petechia. NECK: Supple. No JVD. LUNGS: Clear bilaterally. Minimal expiratory rhonchi. HEART: S1, S2. No rubs, gallops, murmurs or rubs. ABDOMEN: Soft, nontender, nondistended. EXTREMITIES: No edema, no cyanosis, no clubbing. MUSCULOSKELETAL: Right knee arthroplasty site looks okay. No effusion, no redness, no decrease in range of motion: No generalized rash. No skin breakdown. NEUROLOGIC: Alert and oriented x 3. Grossly nonfocal. PSYCHIATRIC: Cooperative, appropriate mood and affect. LABORATORY DATA: WBC 8.7, hemoglobin 14.4, hematocrit 41.2, platelets 270. Sodium 141, potassium 3.9, chloride 105, bicarbonate 25, BUN 14, creatinine 0.8, glucose 128. Lactate 0.8. D-dimer 0.50. Influenza screen negative. Blood culture 1 out of 2 bottles positive for gram-positive cocci in clusters. RADIOLOGY: CT chest, infiltrates at the posterior left mid thoracic level within the lower lobe interval. Followup to resolution is recommended. IMPRESSION: 1. Bacteremia, 1 out of 2 sets positive for gram-positive cocci in clusters, could be contaminant versus true infection. Etiology unclear. 2. Dyspnea with pulmonary infiltrates, left lung on CT chest. 3. Diarrhea, rule out Clostridium difficile. 4. Postmenopausal vaginal bleeding intermittently for 1 month. The patient needs [employer]OURNEY[employer] evaluation. 5. History of multiple antibiotic allergies as above. 6. History of smoking. 7. Chronic obstructive pulmonary disease. 8. Hypertension. 9. Right knee arthroplasty, stable. RECOMMENDATIONS: 1. Continue empiric Zosyn. 2. Add empiric vancomycin. Monitor renal functions closely. 3. Repeat blood cultures. 4. Obtain urine strep pneumo antigen. 5. Continue supportive care. 6. Follow up labs in a.m. and cultures. 7. Discussed with RN. The patient is attempting to leave [place] as she has to meet appointment with social security. Discussed with the patient about importance of staying in the hospital to obtain further evaluation especially with bacteremia and further treatment. Thank you, Dr. Salinas for consulting Infectious Disease to participate in this patient's care. If you have any questions, do not hesitate to contact me. MICHELLE RILEY MD DR: VANDANA/antoni JOB#: [id number] / [id number] JESSE
== END 2018-04-20 11:24 | disposition left against medical advice (07) | DRG 191 ==
LOC: ER 10:54 → 5 SOUTH 13:10
PROVIDERS: ADMIT Internal Medicine; ATTEND Internal Medicine
DX: J44.1 Chronic obstructive pulmonary disease with (acute) exacerbation (principal); R65.10 Systemic inflammatory response syndrome (SIRS) of non-infectious origin without acute organ dysfunction; I25.10 Atherosclerotic heart disease of native coronary artery without angina pectoris; I10 Essential (primary) hypertension; N15.9 Renal tubulo-interstitial disease, unspecified; E66.9 Obesity, unspecified; N95.0 Postmenopausal bleeding; Z96.651 Presence of right artificial knee joint; M19.90 Unspecified osteoarthritis, unspecified site; F17.210 Nicotine dependence, cigarettes, uncomplicated; Z82.49 Family history of ischemic heart disease and other diseases of the circulatory system; Z90.49 Acquired absence of other specified parts of digestive tract; Z98.51 Tubal ligation status; Z88.1 Allergy status to other antibiotic agents; Z88.6 Allergy status to analgesic agent; Z88.2 Allergy status to sulfonamides; Z88.8 Allergy status to other drugs, medicaments and biological substances; Z68.36 Body mass index [BMI] 36.0-36.9, adult
CPT/HCPCS: 36415; 71045; 71250; 80048; 80061; 83605; 83880; 84484; 85025; 85379; 87040; 87186; 87205; 87804; 93005; 94640; 94645; 96374; J2543; J2930; J3010; J7512; J7613; J7620; 99285-25

== ENCOUNTER 2018-10-09 10:44 | Emergency (ER) | payer OTHER ==
[~2018-10-09] VITALS: Ht 170.2 cm; Wt 124.7 kg
[~2018-10-09 10:44] MED LIST changes: +ALPR1TAB6 PO; +AMOX1TAB61 PO; +ASPI-630 PO; +GABA600T7 PO; -HYDR-2766 PO; +HYDR-2769 PO; +TRAM50TA PO
[2018-10-09 10:56] VITALS: BP 161/102
[2018-10-09] MEDS ORDERED: DIPHTH,PERTUSS(ACELL),TET TOX 0.5 ML DISP.SYRIN. VAX IM ONE (11:15)
--- NOTE | 2018-10-09 11:28 | PHYS DOC ---
Past Medical History Past Medical History: Angina, Asthma, CAD, COPD, Diverticulitis, Heart Disease , Hypertension, Kidney Infection, [place] Additional Past Medical Histor: RHEMATOID ARTHITIS, DEGENERATIVE BONE DISEASE, URINARY INCONT Past Surgical History: Appendectomy, Cholecystectomy, Tubal ligation Additional Past Surgical Histo: RIGHT KNEE SX Alcohol Use: None Drug Use: None Adult General Chief Complaint Chief Complaint: MECHANICAL FALL HPI HPI Patient is a 58 year old female with history of hypertension, CAD, COPD, current smoker 2 packs of cigarettes per day who presents to the ED today complaining over 7 out of 10 right knee pain and right forehead pain status post falling 5 days ago. She states she hit her head and right knee on a rock she fell. Denies any loss of consciousness. States the headache is worse when she is on the computer. Denies any dizziness, nausea, vomiting. Denies being on any blood thinners. Describes the headache as throbbing and intermittent. Describes the knee pain as sharp and intermittent. Review of Systems Review of Systems Constitutional: Denies fever or chills [] Eyes: Denies change in visual acuity, redness, or eye pain [] HENT: Denies nasal congestion or sore throat [] Respiratory: Denies cough or shortness of breath [] Cardiovascular: No additional information not addressed in HPI [] GI: Denies abdominal pain, nausea, vomiting, bloody stools or diarrhea [] : Denies dysuria or hematuria [] Musculoskeletal: Reports right knee pain. Denies back pain Integument: Denies rash or skin lesions [] Neurologic: Reports headache, denies focal weakness or sensory changes [] All other systems were reviewed and found to be within normal limits, except as documented in this note. Current Medications Current Medications Current Medications Medications (Trade) Dose Ordered Sig/Lyric Start Time Stop Time Status Last Admin Dose Admin Diphtheria/ Tetanus/Acell Pertussis (Boostrix) 0.5 ml ONCE ONCE 10/09/18 11:15 10/09/18 11:16 DC Allergies Allergies Allergies Coded Allergies Type Severity Reaction Last Updated Verified Sulfa (Sulfonamide Antibiotics) Allergy Severe 08/29/17 Yes Tetracyclines Allergy Severe 08/29/17 Yes codeine Allergy Severe 08/29/17 Yes erythromycin base Allergy Severe 08/29/17 Yes levofloxacin Allergy Severe 08/29/17 Yes meperidine Allergy Severe 10/03/17 Yes Iodinated Contrast- Oral and IV Dye Allergy Unknown 08/29/17 Yes albuterol Allergy Unknown PATIENT STATES SHE IS ALLERGIC TO EXCIPIENT/OIL IN COMBIVENT 04/19/18 Yes ipratropium Allergy Unknown PATIENT STATES SHE IS ALLERGIC TO EXCIPIENT/OIL IN COMBIVENT 04/19/18 Yes Physical Exam Physical Exam Constitutional: Well developed, well nourished, no acute distress, non-toxic appearance. [] HENT: Normocephalic, atraumatic, bilateral external ears normal, oropharynx moist, no oral exudates, nose normal. [] Eyes: PERRLA, EOMI, conjunctiva normal, no discharge. [] Neck: Normal range of motion, no tenderness, supple, no stridor. [] Cardiovascular:Heart rate regular rhythm, no murmur [] Lungs & Thorax: Bilateral breath sounds clear to auscultation [] Abdomen: Bowel sounds normal, soft, no tenderness, no masses, no pulsatile masses. [] Skin: Warm, dry, no erythema, no rash. [] Back: No tenderness, no CVA tenderness. [] Extremities: Obese patient, right knee with old healed surgical incision. Bruising noted to the anterior aspect of the right ankle, with tenderness on the medial knee. Intact passive range of motion to the right knee. +2 right pedal pulse. Cap refill less than 2 seconds the right toes. Neurologic: Alert and oriented X 3, normal motor function, normal sensory function, no focal deficits noted. Cranial nerves II through XII intact right forehead with small amount of bruising. Psychologic: Affect normal, judgement normal, mood normal. [] Current Patient Data Vital Signs Vital Signs Date Time Temp Pulse Resp B/P (MAP) Pulse Ox O2 Delivery O2 Flow Rate FiO2 10/09/18 10:56 97.8 110 20 161/102 (121) 97 Room Air 97.8 EKG EKG [] Radiology/Procedures Radiology/Procedures []PROCEDURE: KNEE RIGHT 4V Right knee, 4 views, 10/09/2018: HISTORY: Knee pain after a fall There are surgical screws and surgical tracks in the distal femur and proximal tibia compatible with previous ACL reconstructive surgery. There is moderate narrowing of the knee joint with moderate marginal spurring. There is mild lateral subluxation of the tibia relative to the distal femur, most likely chronic. Severe hypertrophic degenerative change is present at the patellofemoral articulation. No acute fracture is identified. No large joint effusion is seen. IMPRESSION: 1. Previous ACL reconstructive surgery. 2. Moderate to severe hypertrophic degenerative change at the right knee. 3. Mild lateral subluxation of the tibia relative to the distal femur. Electronically signed by: Elvin Doyle MD (10/09/2018 11:25 AM) [facility] DICTATED and SIGNED BY: ELVIN DOYLE MD DATE: 10/09/18 1125 PROCEDURE: CT HEAD AND MAXILLOFACIAL WO Exam performed: CT scan head and maxillofacial. Indication: Patient fell and hit head on the rock. Date of service: 10/09/2018,Comparison: None available Technique: Contiguous acquisitions are obtained from the foramen magnum to the vertex without IV contrast. Additional scanning was performed through the maxillofacial structures without IV contrast. Coronal reformatted images are obtained and reviewed. Findings: CT head: The ventricles are midline without evidence of dilatation. Normal matos-white differentiation is maintained. There is no extra axial fluid collection, intraparenchymal hemorrhage or mass lesion. The visualized portions of the orbits, paranasal sinuses and the mastoid air cells appear clear. The calvarium is intact. Impression: 1. No acute intracranial process detected. CT maxillofacial: Small mucus retention cyst is seen in the right maxillary sinus. There is normal aeration of both frontal, ethmoid, left maxillary and sphenoid sinuses.No air-fluid level, mucoperiosteal thickening or mucus retention cyst is identified. The bony orbital margins and the intraocular contents are bilaterally symmetric and unremarkable. Both ostiomeatal complexes are preserved. Nasal bones and zygomatic arches are preserved.No abnormal fluid collections or hematoma formation seen. The visualized portion of the brain is normal. Impression: 1. Mucous retention cyst in the right maxillary sinus, otherwise unremarkable study. 2. No acute intracranial abnormality seen PQRS Compliance Statement: One or more of the following individualized dose reduction techniques were utilized for this examination: 1. Automated exposure control 2. Adjustment of the mA and/or kV according to patient size 3. Use of iterative reconstruction technique Electronically signed by: Allison Hdz MD (10/09/2018 12:09 PM) [place] [id number] DICTATED and SIGNED BY: ALLISON HDZ MD DATE: 10/09/18 1209 Course & Med Decision Making Course & Med Decision Making Pertinent Labs and Imaging studies reviewed. (See chart for details) This is a 58-year-old female patient presenting to the ED today with right knee pain, head pain, fell 5 days ago. Right knee xrays-Previous ACL reconstructive surgery. Moderate to severe hypertrophic degenerative change at the right knee.Mild lateral subluxation of the tibia relative to the distal femur. CT of the head and maxillary facial was negative for any acute findings. Patient was discharged to home. Instructed to return to the ED at any point she has any concerning symptoms including but not limited to uncontrolled pain, uncontrolled vomiting, excessive sleepiness, confusion or any other concerning symptoms. Instructed to follow-up with the PCP next week as well as orthopedic doctor. Jonel bandage applied to the knee by the ED RN, neurovascular exam is intact. Ice elevation encouraged. Dragon Disclaimer Dragon Disclaimer This electronic medical record was generated, in whole or in part, using a voice recognition dictation system. Departure Departure Impression: Primary Impression: Fall from standing Additional Impressions: Head injury Contusion of right knee Disposition: HOME, SELF-CARE Condition: STABLE Referrals: UNKNOWN PCP NAME (PCP) THUY HOUSTON II, MD Follow up in 1 week Patient Instructions: Contusion, [id number], Fall Prevention and Home Safety , Head Injury, Adult Additional Instructions: You were evaluated in the emergency room for head injury and knee contusion. Please try to apply ice to the affected areas and keep them elevated. Take over- the-counter pain medication as needed. Follow-up with your doctor in one week, follow-up with orthopedic doctor provided in a week or your own orthopedic doctor. Problem Qualifiers Primary Impression: Fall from standing Encounter type: initial encounter Qualified Codes: W19.XXXA - Unspecified fall, initial encounter Additional Impressions: Head injury Encounter type: initial encounter Qualified Codes: S09.90XA - Unspecified injury of head, initial encounter Contusion of right knee Encounter type: initial encounter Qualified Codes: S80.01XA - Contusion of right knee, initial encounter [employer] TECHNICIAN Oct 09, 2018 11:28
--- NOTE | 2018-10-09 12:11 | RAD ---
Exam performed: CT scan head and maxillofacial. Indication: Patient fell and hit head on the rock. Date of service: 10/09/2018,Comparison: None available Technique: Contiguous acquisitions are obtained from the foramen magnum to the vertex without IV contrast. Additional scanning was performed through the maxillofacial structures without IV contrast. Coronal reformatted images are obtained and reviewed. Findings: CT head: The ventricles are midline without evidence of dilatation. Normal matos-white differentiation is maintained. There is no extra axial fluid collection, intraparenchymal hemorrhage or mass lesion. The visualized portions of the orbits, paranasal sinuses and the mastoid air cells appear clear. The calvarium is intact. Impression: 1. No acute intracranial process detected. CT maxillofacial: Small mucus retention cyst is seen in the right maxillary sinus. There is normal aeration of both frontal, ethmoid, left maxillary and sphenoid sinuses.No air-fluid level, mucoperiosteal thickening or mucus retention cyst is identified. The bony orbital margins and the intraocular contents are bilaterally symmetric and unremarkable. Both ostiomeatal complexes are preserved. Nasal bones and zygomatic arches are preserved.No abnormal fluid collections or hematoma formation seen. The visualized portion of the brain is normal. Impression: 1. Mucous retention cyst in the right maxillary sinus, otherwise unremarkable study. 2. No acute intracranial abnormality seen PQRS Compliance Statement: One or more of the following individualized dose reduction techniques were utilized for this examination: 1. Automated exposure control 2. Adjustment of the mA and/or kV according to patient size 3. Use of iterative reconstruction technique Electronically signed by: Allison Hdz MD (10/09/2018 12:09 PM) [place] [id number]
== END 2018-10-09 13:11 | disposition home or self-care (01) ==
LOC: ER 10:44
DX: S80.01XA Contusion of right knee, initial encounter (principal); S09.90XA Unspecified injury of head, initial encounter; I11.9 Hypertensive heart disease without heart failure; J44.9 Chronic obstructive pulmonary disease, unspecified; I25.2 Old myocardial infarction; I25.10 Atherosclerotic heart disease of native coronary artery without angina pectoris; Z88.2 Allergy status to sulfonamides; Z88.1 Allergy status to other antibiotic agents; Z88.5 Allergy status to narcotic agent; Z91.041 Radiographic dye allergy status; Z88.8 Allergy status to other drugs, medicaments and biological substances; Z98.890 Other specified postprocedural states; W18.09XA Striking against other object with subsequent fall, initial encounter; Y93.89 Activity, other specified; Y92.89 Other specified places as the place of occurrence of the external cause; Y99.8 Other external cause status
CPT/HCPCS: 70450; 70486; 73564; 99284

== ENCOUNTER → 2021-04-30 | Outpatient (CLI) | payer MEDICAID ==
[~2021-04-30] MED LIST changes: -NABU750T PO; +NABU750T11 PO
--- NOTE | 2021-04-30 11:24 | KCIC ---
EXAMINATION: CT chest without IV contrast INDICATION:61 years, Female, lung cancer screening, smoker for 47 years. COMPARISON: CT chest dated 04/19/2018 TECHNIQUE: Low-dose CT scan of the chest with 3-D MIP coronal and sagittal reconstructions was [facility] ed. Exposure: One or more of the following individualized dose reduction techniques were utilized for [facility] s examination: 1. Automated exposure control 2. Adjustment of the mA and/or kV according to patient size 3. Use of iterative reconstruction technique. Lung-RADS assessment categories: 0: Incomplete. Additional lung cancer screening CT images and/or comparison to prior chest CT examina tions is needed. 1: Negative. Continue annual screening with low dose CT (LDCT) in 12 months. 2: Benign appearance or behavior. Continue annual screening with LDCT in 12 months. 3: Probably benign. 6 month follow-up LDCT recommended. 4A: Suspicious. 3 month LDCT follow up, PET/CT may be used when there is ? 8mm (? 268 mm3) solid comp onent. 4B or 4X: Very Suspicious. Chest CT with or without contrast, PET/CT, and/or biopsy recommended. PET/ CT may be used when there is ? 8mm (? 268 mm3) solid component. For new large nodules that develop on an annual repeat screening CT, a 1 month LDCT may be recommended to address potentially infectious o r inflammatory conditions. Modifiers: S: Clinically significant or potentially clinically significant findings (non-lung cancer). Exposure: One or more of the following individualized dose reduction techniques were utilized for [facility] s examination: 1. Automated exposure control 2. Adjustment of the mA and/or kV according to patient size 3. Use of iterative reconstruction technique. FINDINGS: LUNGS/PLEURA: There is a 4.5 mm pulmonary nodule in the left upper lobe (series 6 image 127), [facility]. Minimal centrilobular and paraseptal pulmonary emphysema in the upper lobes. L inear scarring in the lingula. No focal consolidation, pleural effusion or pneumothorax. MEDIASTINUM: No pathologic mediastinal or hilar adenopathy. The thoracic aorta and pulmonary arteries are normal in caliber. The heart is normal in size. No pericardial effusion. No detectable calcified coronary atherosclerosis. The visualized thyroid and the esophagus are unremarkable. AXILLA/SOFT TISSUE: No supraclavicular or axillary adenopathy. Regional soft tissues are within donal l limits. UPPER ABDOMEN: Cholecystectomy. BONES: No evidence of acute fractures or aggressive osseous lesions. Mild multilevel degenerative kwadwo nges in the thoracic spine. IMPRESSION: 1. Lung-RADS 2: Benign appearance or behavior. Continue annual screening with LDCT in 12 months. 2. Stable 4.5 mm left upper lobe solid pulmonary nodule since March 2018. 3. Similar mild pulmonary emphysema. Electronically signed by: Michelle Wood MD (04/30/2021 11:22 AM) [id number]
== END ==
LOC: KCIC CT 10:43
PROVIDERS: ATTEND Family Medicine
DX: R91.1 Solitary pulmonary nodule (principal); J43.9 Emphysema, unspecified; F17.210 Nicotine dependence, cigarettes, uncomplicated; M47.814 Spondylosis without myelopathy or radiculopathy, thoracic region; Z90.49 Acquired absence of other specified parts of digestive tract
CPT/HCPCS: 71271